=== PATIENT | male | born 1950 | race Caucasian/White ===

== ENCOUNTER 2019-10-17 20:35 | Inpatient (IN) ==
[2019-10-18] MEDS ORDERED: Naloxone 0.4 MG/ML INJ IVP PRN (00:02)
[2019-10-18] MEDS ORDERED: Nicotine 21 MG PATCH.TD24 TD PRN (00:51)
[2019-10-18 02:27] LABS: Red Cell Distribution Width 15.6 % (11.5-14.5)
[2019-10-18 02:29] LABS: Mean Corpuscular HGB Conc 30.8 g/dL (31.6-35.5); Mean Corpuscular Volume 97.3 fL (83.0-100.0); Platelet Count 159 K/mcL (140-400); White Blood Count 6.9 K/mcL (4.3-11.1)
[2019-10-18 02:34] LABS: Hematocrit 14.6 % (37.5-50.1); Hemoglobin 4.5 g/dL (12.9-16.9)
[2019-10-18] MEDS ORDERED: 0.9 % Sodium Chloride 250 ML IVC SCH ×2 (02:45→17:00)
[2019-10-18] MEDS: Azithromycin 500 MG in D5% in Water 250 ML IVPB SCH (04:29)
[2019-10-18] MEDS: Octreotide 400 MCG in 0.9 % Sodium Chloride 100 ML IVC SCH ×3 (05:27→23:02)
[2019-10-18] MEDS: Pantoprazole 40 MG VIAL IVP SCH ×2 (06:03→18:46)
[2019-10-18] MEDS ORDERED: Ondansetron 4 MG/2 ML VIAL IVP PRN (09:27)
[2019-10-18] MEDS: cefTRIAXone 1,000 MG in Water for inj. (sterile) 10 ML IVP SCH (10:28)
[2019-10-18] MEDS: Gabapentin 400 MG CAPSULE PO SCH ×2 (10:29→19:44)
[2019-10-18] MEDS: *HR* OxyCODONE Immed Rel 15 MG TABLET PO SCH ×2 (10:30→19:44)
[2019-10-18 11:06] LABS: Hematocrit 18.3 % (37.5-50.1)
[2019-10-18 11:16] LABS: Hemoglobin 5.5 g/dL (12.9-16.9)
[2019-10-18 12:54] LABS: % Iron Saturation 23 % (20-55); Iron 78 mcg/dL (65-175); Transferrin 239 mg/dL (203-362)
[2019-10-18 13:12] LABS: Ferritin 32 ng/mL (20-250)
[2019-10-18 19:27] LABS: Hepatitis B Surface Antigen Nonreactive (Nonreactive)
[2019-10-18] MEDS: QUEtiapine Fumarate 100 MG TABLET PO SCH (19:44)
[2019-10-18 19:56] LABS: Hepatitis B Core IgM Nonreactive (Nonreactive)
[2019-10-18 19:58] LABS: Hepatitis A Antibody IgM Nonreactive (Nonreactive)
[2019-10-19 01:39] LABS: Hepatitis C Virus Antibody Reactive (Nonreactive)
[2019-10-19] MEDS ORDERED: Azithromycin 500 MG in 0.9 % Sodium Chloride 250 ML IVPB SCH (04:15)
[2019-10-19] MEDS: Pantoprazole 40 MG VIAL IVP SCH ×2 (04:23→17:21)
[2019-10-19] MEDS: Octreotide 400 MCG in 0.9 % Sodium Chloride 100 ML IVC SCH (05:59)
[2019-10-19 08:17] LABS: Basophils % 0.7 %; Eosinophils # 0.2 K/mcL (0.0-0.6); Eosinophils % 4.4 %; Hematocrit 23.3 % (37.5-50.1); Hemoglobin 7.4 g/dL (12.9-16.9); Immature Granulocytes % 0.4 % (0-4); Lymphocytes # 1.1 K/mcL (0.6-4.6); Mean Corpuscular HGB Conc 31.8 g/dL (31.6-35.5); Mean Corpuscular Hemoglobin 29.1 pg (28.0-33.3); Mean Corpuscular Volume 91.7 fL (83.0-100.0); Mean Platelet Volume 9.6 fL (9.4-12.4); Monocytes # 0.6 K/mcL (0.0-1.3); Neutrophils # 2.7 K/mcL (1.6-8.9); Platelet Count 134 K/mcL (140-400); Red Blood Count 2.54 M/mcL (4.19-5.50); Red Cell Distribution Width 18.4 % (11.5-14.5); Segmented Neutrophils % 58.5 %; White Blood Count 4.6 K/mcL (4.3-11.1)
[2019-10-19] MEDS ORDERED: lisinopriL 20 MG TABLET PO SCH (09:00)
[2019-10-19 09:26] LABS: ABG Base Excess 3 mEq/L (-2 to 3); ABG HCO3 29 mEq/L (21-27); ABG Oxygen Saturation 100 % (95-98); ABG PCO2 51 mmHg (35-45); ABG PH 7.37 pH Units (7.32-7.45); ABG PO2 210 mmHg (85-104); ABG TCO2 31 mEq/L (20-26)
[2019-10-19 09:47] LABS: Basophils % 0.7 %; Eosinophils # 0.2 K/mcL (0.0-0.6); Eosinophils % 4.9 %; Hemoglobin 7.1 g/dL (12.9-16.9); Immature Granulocytes % 0.5 % (0-4); Lymphocytes % 23.8 %; Mean Corpuscular HGB Conc 30.9 g/dL (31.6-35.5); Mean Corpuscular Hemoglobin 28.5 pg (28.0-33.3); Mean Corpuscular Volume 92.4 fL (83.0-100.0); Mean Platelet Volume 9.7 fL (9.4-12.4); Monocytes # 0.5 K/mcL (0.0-1.3); Monocytes % 11.9 %; Neutrophils # 2.5 K/mcL (1.6-8.9); Platelet Count 135 K/mcL (140-400); Red Blood Count 2.49 M/mcL (4.19-5.50); Red Cell Distribution Width 18.1 % (11.5-14.5); Segmented Neutrophils % 58.2 %; White Blood Count 4.3 K/mcL (4.3-11.1)
[2019-10-19 10:02] LABS: Alanine Aminotransferase 11 Units/L (7-52); Albumin 2.1 g/dL (3.5-5.7); Albumin/Globulin Ratio 0.7 (1.1-2.2); Alkaline Phosphatase 54 Units/L (34-104); Aspartate Amino Transferase 26 Units/L (13-39); BUN/Creatinine Ratio 10 (6-26); Bilirubin,Total 0.6 mg/dL (0.3-1.0); Blood Urea Nitrogen 12 mg/dL (8-23); Calcium 7.2 mg/dL (8.6-10.3); Carbon Dioxide 26 mEq/L (23-29); Chloride 106 mEq/L (98-107); Glucose 106 mg/dL (70-105); Osmolality,Calculated 282 (280-300); Potassium 3.6 mEq/L (3.5-5.1); Sodium 136 mEq/L (136-145); Total Protein 5.1 g/dL (6.4-8.9); eGFR For African Americans > 60 (> 60); eGFR For Non-African Americans > 60 (> 60)
[2019-10-19] MEDS: Gabapentin 400 MG CAPSULE PO SCH ×2 (11:07→19:30)
[2019-10-19] MEDS: cefTRIAXone 1,000 MG in Water for inj. (sterile) 10 ML IVP SCH (11:07)
[2019-10-19] MEDS: *HR* OxyCODONE Immed Rel 15 MG TABLET PO SCH ×2 (11:07→19:28)
[2019-10-19] MEDS ORDERED: Lactulose Oral Soln 20 GM/30 ML UDC PO ONE (11:48)
[2019-10-19] MEDS: Doxycycline 100 MG in 0.9 % Sodium Chloride Mini Bag 100 ML IVPB SCH ×2 (12:45→23:52)
[2019-10-19] MEDS: Azithromycin 500 MG in D5% in Water 250 ML IVPB SCH (14:05)
[2019-10-19 14:37] LABS: AFP Tumor Marker Non-Pregnant 2 ng/mL (0-9)
[2019-10-19 15:11] LABS: Hematocrit 24.8 % (37.5-50.1); Hemoglobin 7.8 g/dL (12.9-16.9)
[2019-10-19] MEDS: QUEtiapine Fumarate 100 MG TABLET PO SCH (19:28)
[2019-10-20] MEDS ORDERED: Albuterol 2.5 MG/3 ML NEBULIZER IH PRN (00:15)
[2019-10-20] MEDS: Pantoprazole 40 MG VIAL IVP SCH ×2 (04:24→16:34)
[2019-10-20 05:14] LABS: Basophils % 0.4 %; Eosinophils # 0.2 K/mcL (0.0-0.6); Hematocrit 22.5 % (37.5-50.1); Hemoglobin 6.9 g/dL (12.9-16.9); Immature Granulocytes % 0.4 % (0-4); Lymphocytes # 1.1 K/mcL (0.6-4.6); Lymphocytes % 22.8 %; Mean Corpuscular HGB Conc 30.7 g/dL (31.6-35.5); Mean Corpuscular Hemoglobin 28.8 pg (28.0-33.3); Mean Corpuscular Volume 93.8 fL (83.0-100.0); Mean Platelet Volume 10.2 fL (9.4-12.4); Monocytes # 0.5 K/mcL (0.0-1.3); Monocytes % 10.3 %; Platelet Count 132 K/mcL (140-400); Red Cell Distribution Width 17.6 % (11.5-14.5); Segmented Neutrophils % 62.1 %; White Blood Count 4.8 K/mcL (4.3-11.1)
[2019-10-20 05:31] LABS: Calcium 7.4 mg/dL (8.6-10.3); Potassium 3.8 mEq/L (3.5-5.1)
[2019-10-20] MEDS: Gabapentin 400 MG CAPSULE PO SCH ×2 (08:21→20:40)
[2019-10-20] MEDS: cefTRIAXone 1,000 MG in Water for inj. (sterile) 10 ML IVP SCH (08:21)
[2019-10-20] MEDS: *HR* OxyCODONE Immed Rel 15 MG TABLET PO SCH ×2 (08:21→20:40)
[2019-10-20 10:23] LABS: Albumin 2.2 g/dL (3.5-5.7)
[2019-10-20 10:48] LABS: Serine Protease-3 Antibody 141 AU/mL (0-19); Tissue Transglutaminase IgA 2 U/mL (0-3)
[2019-10-20 11:06] LABS: ANA IgG by ELISA NONE DETECTED (None Detected); F-Actin (sm muscle) Ab IgG 18 Units (0-19); Immunoglobulin A (CELIAC) 506 mg/dL (68-408)
[2019-10-20] MEDS: Lactulose Oral Soln 20 GM/30 ML UDC PO SCH ×2 (11:58→20:40)
[2019-10-20] MEDS: predniSONE 20 MG TABLET PO SCH (11:58)
[2019-10-20] MEDS: Doxycycline 100 MG in 0.9 % Sodium Chloride Mini Bag 100 ML IVPB SCH (12:00)
[2019-10-20] MEDS: Ipratropium/Albuterol Neb 3 ML IH SCH ×3 (14:33→21:44)
[2019-10-20] MEDS ORDERED: Lidocaine 2% Syringe 100 MG/5 ML IV ONE (18:15)
[2019-10-20] MEDS ORDERED: *HR* Propofol 200 MG/20 ML VIAL IVP ONE (18:15)
[2019-10-20] MEDS: QUEtiapine Fumarate 100 MG TABLET PO SCH (20:40)
[2019-10-21 02:42] LABS: Basophils % 0.2 %; Hematocrit 23.3 % (37.5-50.1); Hemoglobin 7.4 g/dL (12.9-16.9); Immature Granulocytes % 0.5 % (0-4); Lymphocytes # 0.4 K/mcL (0.6-4.6); Lymphocytes % 8.8 %; Mean Corpuscular HGB Conc 31.8 g/dL (31.6-35.5); Mean Corpuscular Hemoglobin 29.5 pg (28.0-33.3); Mean Corpuscular Volume 92.8 fL (83.0-100.0); Mean Platelet Volume 10.4 fL (9.4-12.4); Monocytes # 0.1 K/mcL (0.0-1.3); Monocytes % 2.4 %; Neutrophils # 3.7 K/mcL (1.6-8.9); Platelet Count 120 K/mcL (140-400); Red Blood Count 2.51 M/mcL (4.19-5.50); Red Cell Distribution Width 17.5 % (11.5-14.5); Segmented Neutrophils % 88.1 %; White Blood Count 4.2 K/mcL (4.3-11.1)
[2019-10-21 03:02] LABS: Albumin 2.3 g/dL (3.5-5.7); Albumin/Globulin Ratio 0.7 (1.1-2.2); Bilirubin,Direct 0.2 mg/dL (0.0-0.2); Bilirubin,Indirect 0.3 mg/dL (0.0-1.0); Bilirubin,Total 0.5 mg/dL (0.3-1.0); Calcium 7.5 mg/dL (8.6-10.3); Globulin 3.2 g/dL (2.4-3.5); Potassium 4.5 mEq/L (3.5-5.1); Total Protein 5.5 g/dL (6.4-8.9)
[2019-10-21] MEDS: Ipratropium/Albuterol Neb 3 ML IH SCH ×5 (03:51→22:31)
[2019-10-21] MEDS: Pantoprazole 40 MG VIAL IVP SCH ×2 (05:28→17:34)
[2019-10-21] MEDS: Lactulose Oral Soln 20 GM/30 ML UDC PO SCH ×2 (08:24→20:24)
[2019-10-21] MEDS: *HR* OxyCODONE Immed Rel 15 MG TABLET PO SCH ×2 (08:24→20:24)
[2019-10-21] MEDS: predniSONE 20 MG TABLET PO SCH (08:25)
[2019-10-21] MEDS: Gabapentin 400 MG CAPSULE PO SCH ×2 (08:25→20:23)
[2019-10-21] MEDS: cefTRIAXone 1,000 MG in Water for inj. (sterile) 10 ML IVP SCH (08:25)
[2019-10-21] MEDS: Doxycycline 100 MG in 0.9 % Sodium Chloride Mini Bag 100 ML IVPB SCH ×3 (12:52→23:50)
[2019-10-21] MEDS: QUEtiapine Fumarate 100 MG TABLET PO SCH (20:24)
[2019-10-22] MEDS: Pantoprazole 40 MG VIAL IVP SCH ×2 (05:19→17:23)
[2019-10-22] MEDS: Lactulose Oral Soln 20 GM/30 ML UDC PO SCH (07:56)
[2019-10-22] MEDS: predniSONE 20 MG TABLET PO SCH (07:56)
[2019-10-22] MEDS: Gabapentin 400 MG CAPSULE PO SCH (07:56)
[2019-10-22] MEDS: *HR* OxyCODONE Immed Rel 15 MG TABLET PO SCH (07:57)
[2019-10-22] MEDS: cefTRIAXone 1,000 MG in Water for inj. (sterile) 10 ML IVP SCH (07:57)
[2019-10-22 08:21] LABS: Eosinophils % 0.2 %; Hematocrit 24.5 % (37.5-50.1); Hemoglobin 7.6 g/dL (12.9-16.9); Immature Granulocytes % 0.6 % (0-4); Lymphocytes # 0.8 K/mcL (0.6-4.6); Lymphocytes % 15.4 %; Mean Corpuscular Hemoglobin 29.8 pg (28.0-33.3); Mean Corpuscular Volume 96.1 fL (83.0-100.0); Mean Platelet Volume 10.5 fL (9.4-12.4); Monocytes # 0.4 K/mcL (0.0-1.3); Monocytes % 8.1 %; Platelet Count 131 K/mcL (140-400); Red Blood Count 2.55 M/mcL (4.19-5.50); Red Cell Distribution Width 18.1 % (11.5-14.5); Segmented Neutrophils % 75.7 %; White Blood Count 5.2 K/mcL (4.3-11.1)
[2019-10-22 08:22] LABS: INR 1.2; Prothrombin Time 14.1 Seconds (9.4-12.1)
[2019-10-22 08:26] LABS: BUN/Creatinine Ratio 17 (6-26); Blood Urea Nitrogen 19 mg/dL (8-23); Calcium 7.9 mg/dL (8.6-10.3); Carbon Dioxide 23 mEq/L (23-29); Chloride 112 mEq/L (98-107); Glucose 90 mg/dL (70-105); Osmolality,Calculated 286 (280-300); Potassium 4.5 mEq/L (3.5-5.1); Sodium 137 mEq/L (136-145); eGFR For African Americans > 60 (> 60); eGFR For Non-African Americans > 60 (> 60)
[2019-10-22] MEDS: Doxycycline 100 MG in 0.9 % Sodium Chloride Mini Bag 100 ML IVPB SCH (11:37)
[2019-10-22 12:01] LABS: RBC,Peritoneal Fluid < 0.002 M/mcL
[2019-10-22 12:19] LABS: Amylase,Peritoneal Fluid < 10 Units/L (No Ref Range); Glucose,Peritoneal Fluid 103 mg/dL (No Ref Range); LDH,Peritoneal Fluid 50 Units/L (No Ref Range); Total Protein,Peritoneal Fluid < 3.0 g/dL
[2019-10-22] MEDS ORDERED: Furosemide 20 MG TABLET PO PRN (12:27)
[2019-10-22 13:47] LABS: Appearance of Peritoneal Fl HAZY (Clear)
[2019-10-22 15:03] VITALS: BP 102/67
[2019-10-22 15:48] LABS: A1A SZ Specimen WHOLE BLOOD; Alpha-1-Antitrypsin S Allele NEGATIVE; Alpha-1-Antitrypsin Z Allele NEGATIVE
[2019-10-22 17:04] LABS: Alpha-1-Antitrypsin 234 mg/dL (90-200)
== END 2019-10-22 18:16 | disposition left against medical advice (07) | DRG 377 ==
LOC: 2NENU → SUATTDRO 10-18 16:37 → 3NENU 10-18 20:13 → 3ANU 10-21 10:11
PROVIDERS: ADMIT Internal Medicine; ATTEND Internal Medicine
PROC: ENDOEBX (2019-10-19 12:40)

== ENCOUNTER 2020-11-04 01:24 | Observation (INO) ==
[2020-11-04] MEDS ORDERED: Acetaminophen 325 MG TABLET PO PRN (04:25)
[2020-11-04] MEDS ORDERED: Naloxone 0.4 MG/ML INJ IVP PRN (04:25)
[2020-11-04] MEDS ORDERED: *HR* HYDROcodone/Acet 5/325 mg TABLET PO PRN (04:25)
[2020-11-04] MEDS ORDERED: Ondansetron 4 MG/2 ML VIAL IVP PRN (04:25)
[2020-11-04 05:33] LABS: Calcium 8.3 mg/dL (8.6-10.3); Potassium 5.8 mEq/L (3.5-5.1)
[2020-11-04] MEDS ORDERED: Albuterol 2.5 MG/3 ML NEBULIZER IH ONE ×2 (05:43→22:29)
[2020-11-04] MEDS ORDERED: Calcium Gluconate 1gm/50mL 1 GM/50 ML BAG IVPB ONE ×2 (05:52→22:34)
[2020-11-04] MEDS ORDERED: Insulin Human Regular 10 UNIT in 0.9 % Sodium Chloride 10 ML IV ONE ×2 (05:56→22:40)
[2020-11-04] MEDS ORDERED: D5% in Water 1,000 ML IVC SCH (06:00)
[2020-11-04] MEDS: *HR* Heparin 5,000 UNIT/ML VIAL SQ SCH ×3 (06:02→20:40)
[2020-11-04 06:07] LABS: Bilirubin,Urine Negative (Negative); Blood,Urine Negative (Negative); Clarity,Urine Clear (Clear); Color,Urine Colorless (Yellow); Glucose,Urine (UA) 500 mg/dL (Normal); Ketones,Urine Negative (Negative); Leukocyte Esterase,Urine Negative (Negative); Nitrite,Urine Negative (Negative); PH,Urine 6.5 pH Units (5.0-8.0); Protein,Urine Negative (Neg-Trace); RBC,Urine 0-3 per hpf (0-3); Specific Gravity,Urine 1.006 (1.010-1.025); Squamous Epithelial Cell,Urine Few per hpf (None-Few); Urobilinogen,Urine Normal (Normal); WBC,Urine 0-3 per hpf (0-3)
[2020-11-04 06:08] LABS: Basophils # 0.1 K/mcL (0.0-0.2); Basophils % 0.6 %; Eosinophils # 0.1 K/mcL (0.0-0.6); Eosinophils % 1.3 %; Hematocrit 32.4 % (37.5-50.1); Hemoglobin 10.4 g/dL (12.9-16.9); Immature Granulocytes % 1.1 % (0-4); Lymphocytes % 12.2 %; Mean Corpuscular HGB Conc 32.1 g/dL (31.6-35.5); Mean Corpuscular Hemoglobin 31.4 pg (28.0-33.3); Mean Corpuscular Volume 97.9 fL (83.0-100.0); Mean Platelet Volume 10.2 fL (9.4-12.4); Monocytes # 0.7 K/mcL (0.0-1.3); Monocytes % 8.6 %; Neutrophils # 6.1 K/mcL (1.6-8.9); Platelet Count 137 K/mcL (140-400); Red Blood Count 3.31 M/mcL (4.19-5.50); Red Cell Distribution Width 12.8 % (11.5-14.5); Segmented Neutrophils % 76.2 %
[2020-11-04 06:10] LABS: Protein/Creatinine Ratio,Urine 1.12 mg/mg (0.00-0.20)
[2020-11-04 06:30] LABS: Amphetamine Screen,Urine Negative ng/mL (Cutoff=1000); Barbiturate Screen,Urine Negative ng/mL (Cutoff=200)
[2020-11-04 06:31] LABS: Benzodiazepines Screen,Urine Negative ng/mL (Cutoff=300); Cannabinoid Screen,Urine Negative ng/mL (Cutoff = 50); Cocaine Screen,Urine Negative ng/mL (Cutoff= 300); Opiate Screen,Urine Negative ng/mL (Cutoff=300); Phencyclidine Screen,Urine Negative ng/mL (Cutoff=25)
[2020-11-04] MEDS ORDERED: *HR* Dextrose 50 % in Water (Vial) 50 ML VIAL IVP ONE (06:45)
[2020-11-04] MEDS: *HR* OxyCODONE Immed Rel 5 MG TABLET PO PRN ×2 (07:59→20:45)
[2020-11-04 10:19] LABS: Estimated Average Glucose 229 mg/dl; Hemoglobin A1C 9.6 %
[2020-11-04 10:25] LABS: VBG HCO3 19 mEq/L (21-27); VBG PCO2 48 mmHg (41-51); VBG PH 7.22 pH Units (7.32-7.42); VBG PO2 139 mmHg (25-50)
[2020-11-04] MEDS ORDERED: SODIUM ZIRCONIUM CYCLOSILICATE 5 GM POWD.PACK PO ONE (11:01)
[2020-11-04 11:02] LABS: Albumin 3.7 g/dL (3.5-5.7); Albumin/Globulin Ratio 1.1 (1.1-2.2); Bilirubin,Direct 0.2 mg/dL (0.0-0.2); Bilirubin,Indirect 0.4 mg/dL (0.0-1.0); Bilirubin,Total 0.6 mg/dL (0.3-1.0); Calcium 8.9 mg/dL (8.6-10.3); Globulin 3.3 g/dL (2.4-3.5); Magnesium 1.4 mg/dL (1.6-2.6); Phosphorous 3.8 mg/dL (2.7-4.5); Potassium 4.6 mEq/L (3.5-5.1)
[2020-11-04] MEDS ORDERED: Ipratropium/Albuterol Neb 3 ML IH PRN (11:15)
[2020-11-04] MEDS ORDERED: Nicotine 2 MG GUM BC PRN (11:57)
[2020-11-04 11:58] LABS: Uric Acid 5.7 mg/dL (2.3-7.6)
[2020-11-04] MEDS: predniSONE 20 MG TABLET PO SCH (12:21)
[2020-11-04] MEDS: Nicotine 21 MG PATCH.TD24 TD SCH (12:21)
[2020-11-04] MEDS: Ipratropium/Albuterol Neb 3 ML IH SCH ×3 (12:36→21:12)
[2020-11-04 13:07] LABS: VBG HCO3 21 mEq/L (21-27); VBG PCO2 52 mmHg (41-51); VBG PH 7.22 pH Units (7.32-7.42); VBG PO2 85 mmHg (25-50)
[2020-11-04 13:44] LABS: Hepatitis B Surface Antigen Nonreactive (Nonreactive)
[2020-11-04 14:12] LABS: Hepatitis C Virus Antibody Nonreactive (Nonreactive)
[2020-11-04 14:13] LABS: Hepatitis B Core IgM Nonreactive (Nonreactive)
[2020-11-04 14:14] LABS: Hepatitis A Antibody IgM Nonreactive (Nonreactive)
[2020-11-04] MEDS ORDERED: Nitroglycerin 0.4 MG TAB.SUBL SL PRN (15:44)
[2020-11-04] MEDS: Insulin LISPRO 300 UNITS/3 ML VIAL SUBQ SCH (16:33)
[2020-11-04] MEDS: carvediloL 6.25 MG TABLET PO SCH (20:40)
[2020-11-04] MEDS: Sucralfate 1 GM TABLET PO SCH (20:40)
[2020-11-04] MEDS: tiZANidine 4 MG TABLET PO SCH (20:40)
[2020-11-04] MEDS ORDERED: QUEtiapine Fumarate 100 MG TABLET PO SCH (21:00)
[2020-11-04] MEDS ORDERED: Insulin DETEMIR 100 UNIT/ML X5UNITS SUBQ SCH (21:00)
[2020-11-04] MEDS ORDERED: carvediloL 6.25 MG TABLET PO SCH (21:00)
[2020-11-04] MEDS ORDERED: Insulin LISPRO 300 UNITS/3 ML VIAL SUBQ SCH (21:30)
[2020-11-04] MEDS ORDERED: Budesonide/Formoterol 160/4.5 1 PUFF INH IH SCH (22:00)
[2020-11-04 22:27] LABS: Potassium 6.8 mEq/L (3.5-5.1)
[2020-11-05 02:45] LABS: Basophils % 0.2 %; Eosinophils % 0.1 %; Hematocrit 31.5 % (37.5-50.1); Hemoglobin 10.6 g/dL (12.9-16.9); Immature Granulocytes % 0.8 % (0-4); Lymphocytes # 0.8 K/mcL (0.6-4.6); Lymphocytes % 8.9 %; Mean Corpuscular HGB Conc 33.7 g/dL (31.6-35.5); Mean Corpuscular Hemoglobin 32.1 pg (28.0-33.3); Mean Corpuscular Volume 95.5 fL (83.0-100.0); Mean Platelet Volume 10.1 fL (9.4-12.4); Monocytes # 0.5 K/mcL (0.0-1.3); Monocytes % 6.1 %; Neutrophils # 7.3 K/mcL (1.6-8.9); Platelet Count 152 K/mcL (140-400); Red Cell Distribution Width 12.7 % (11.5-14.5); Segmented Neutrophils % 83.9 %; White Blood Count 8.7 K/mcL (4.3-11.1)
[2020-11-05 02:53] LABS: INR 1.1; Prothrombin Time 12.5 Seconds (9.4-12.1)
[2020-11-05 03:03] LABS: Calcium 9.5 mg/dL (8.6-10.3); Potassium 5.4 mEq/L (3.5-5.1)
[2020-11-05 03:07] LABS: Albumin 3.8 g/dL (3.5-5.7); Albumin/Globulin Ratio 1.1 (1.1-2.2); Bilirubin,Total 0.4 mg/dL (0.3-1.0); Calcium 9.7 mg/dL (8.6-10.3); Globulin 3.4 g/dL (2.4-3.5); Magnesium 2.1 mg/dL (1.6-2.6); Phosphorous 2.9 mg/dL (2.7-4.5); Potassium 5.5 mEq/L (3.5-5.1); Total Protein 7.2 g/dL (6.4-8.9)
[2020-11-05 03:17] LABS: Thyroid Stimulating Hormone 0.364 mcIU/mL (0.340-5.600)
[2020-11-05] MEDS: Ipratropium/Albuterol Neb 3 ML IH SCH (03:18)
[2020-11-05 03:27] LABS: Folate 8.8 ng/mL (3.0-16.0)
[2020-11-05] MEDS: Nicotine 21 MG PATCH.TD24 TD SCH (05:29)
[2020-11-05] MEDS: *HR* Heparin 5,000 UNIT/ML VIAL SQ SCH (05:29)
[2020-11-05 07:29] VITALS: BP 164/52
[2020-11-05] MEDS ORDERED: *HR* Dextrose 50 % in Water (Vial) 50 ML VIAL IVP ONE (07:41)
[2020-11-05] MEDS ORDERED: Insulin Human Regular 10 UNIT in 0.9 % Sodium Chloride 10 ML IV ONE (08:00)
[2020-11-05] MEDS ORDERED: SODIUM ZIRCONIUM CYCLOSILICATE 5 GM POWD.PACK PO ONE (08:02)
[2020-11-05] MEDS ORDERED: Insulin Human Regular 5 UNIT in 0.9 % Sodium Chloride 10 ML IV ONE (08:14)
[2020-11-05] MEDS: Insulin LISPRO 300 UNITS/3 ML VIAL SUBQ SCH ×2 (08:23→08:40)
[2020-11-05] MEDS: carvediloL 6.25 MG TABLET PO SCH (08:38)
[2020-11-05] MEDS: predniSONE 20 MG TABLET PO SCH (08:39)
[2020-11-05] MEDS: Sucralfate 1 GM TABLET PO SCH (08:40)
[2020-11-05] MEDS: tiZANidine 4 MG TABLET PO SCH (08:40)
[2020-11-05] MEDS ORDERED: Insulin DETEMIR 100 UNIT/ML X5UNITS SUBQ SCH (09:00)
== END 2020-11-05 09:32 | disposition left against medical advice (07) ==
LOC: 2ANU → SUATTDRO 03:12
PROVIDERS: ADMIT Internal Medicine; ATTEND Internal Medicine

== ENCOUNTER 2021-08-08 01:59 | Inpatient (IN) ==
[2021-08-08] MEDS ORDERED: Naloxone 0.4 MG/ML INJ IVP PRN (04:33)
[2021-08-08] MEDS ORDERED: Ondansetron 4 MG/2 ML VIAL IVP PRN (04:33)
[2021-08-08] MEDS ORDERED: Acetaminophen 325 MG TABLET PO PRN (04:33)
[2021-08-08] MEDS ORDERED: *HR* Dextrose 50 % in Water (Syg) 50 ML SYRINGE IVP PRN (04:35)
[2021-08-08] MEDS ORDERED: D5% in Water 1,000 ML IVC PRN (04:35)
[2021-08-08] MEDS ORDERED: Dextrose Gel 15 GM/37.5 ML TUBE PO PRN ×2 (04:35)
[2021-08-08] MEDS ORDERED: 0.9 % Sodium Chloride 1,000 ML IVC ONE (04:37)
[2021-08-08 04:59] LABS: ABG Base Excess -10 mEq/L (-2 to 3); ABG HCO3 16 mEq/L (21-27); ABG Oxygen Saturation 54 % (95-98); ABG PCO2 32 mmHg (35-45); ABG PO2 31 mmHg (85-104); ABG TCO2 17 mEq/L (20-26)
[2021-08-08 05:37] LABS: Hematocrit 24.2 % (37.5-50.1); Hemoglobin 7.9 g/dL (12.9-16.9); Red Blood Count 2.63 M/mcL (4.19-5.50); White Blood Count 9.4 K/mcL (4.3-11.1)
[2021-08-08 05:39] LABS: Basophils % 0.1 %; Eosinophils # 0.1 K/mcL (0.0-0.6); Eosinophils % 0.6 %; Immature Granulocytes % 1.3 % (0-4); Lymphocytes # 0.7 K/mcL (0.6-4.6); Lymphocytes % 7.6 %; Mean Corpuscular HGB Conc 32.2 g/dL (31.6-35.5); Mean Corpuscular Hemoglobin 29.7 pg (28.0-33.3); Mean Platelet Volume 10.2 fL (9.4-12.4); Monocytes # 0.8 K/mcL (0.0-1.3); Monocytes % 8.6 %; Neutrophils # 7.7 K/mcL (1.6-8.9); Platelet Count 129 K/mcL (140-400); Red Cell Distribution Width 14.3 % (11.5-14.5); Segmented Neutrophils % 81.8 %
[2021-08-08] MEDS ORDERED: Acetaminophen IV 500 MG/50 ML BAG IVPB ONE (05:45)
[2021-08-08 05:48] LABS: INR 1.4; Prothrombin Time 15.4 Seconds (9.4-12.1)
[2021-08-08] MEDS ORDERED: Insulin LISPRO 300 UNITS/3 ML VIAL SUBQ SCH (06:00)
[2021-08-08 06:05] LABS: Albumin 2.7 g/dL (3.5-5.7); Albumin/Globulin Ratio 0.9 (1.1-2.2); Bilirubin,Total 0.6 mg/dL (0.3-1.0); Calcium 7.7 mg/dL (8.6-10.3); Globulin 3.1 g/dL (2.4-3.5); Magnesium 1.5 mg/dL (1.6-2.6); Phosphorous 2.3 mg/dL (2.7-4.5); Potassium 3.9 mEq/L (3.5-5.1); Total Protein 5.8 g/dL (6.4-8.9); Troponin I 0.03 ng/mL (< 0.04)
[2021-08-08] MEDS: Ipratropium 1 PUFF INHALER IH SCH ×5 (07:12→20:46)
[2021-08-08] MEDS: Benzonatate 100 MG CAPSULE PO PRN ×2 (08:02→14:28)
[2021-08-08] MEDS: Insulin LISPRO 300 UNITS/3 ML VIAL SUBQ SCH ×4 (12:38→20:48)
[2021-08-08] MEDS ORDERED: Sennosides 8.6 MG TABLET PO PRN (13:37)
[2021-08-08] MEDS ORDERED: Nitroglycerin 0.4 MG TAB.SUBL SL PRN (13:37)
[2021-08-08] MEDS ORDERED: Ipratropium/Albuterol Neb 3 ML IH PRN (13:37)
[2021-08-08] MEDS: Gabapentin 300 MG CAPSULE PO SCH ×2 (14:28→20:38)
[2021-08-08 15:05] LABS: Albumin 2.5 g/dL (3.5-5.7); Albumin/Globulin Ratio 0.8 (1.1-2.2); Bilirubin,Total 0.6 mg/dL (0.3-1.0); Calcium 7.4 mg/dL (8.6-10.3); Globulin 3.3 g/dL (2.4-3.5); Potassium 4.7 mEq/L (3.5-5.1); Total Protein 5.8 g/dL (6.4-8.9)
[2021-08-08] MEDS: Melatonin 3 MG TABLET PO PRN (20:34)
[2021-08-08] MEDS: Sucralfate 1 GM TABLET PO SCH (20:35)
[2021-08-08] MEDS: *HR* Methadone 5 MG TABLET PO SCH (20:35)
[2021-08-08] MEDS: QUEtiapine Fumarate 100 MG TABLET PO SCH (20:37)
[2021-08-09] MEDS: Budesonide/Formoterol 160/4.5 1 PUFF INH IH SCH ×3 (00:03→19:45)
[2021-08-09] MEDS: carvediloL 6.25 MG TABLET PO SCH ×3 (00:32→20:43)
[2021-08-09] MEDS: Benzonatate 100 MG CAPSULE PO PRN (00:34)
[2021-08-09 02:22] LABS: Hematocrit 19.9 % (37.5-50.1); Hemoglobin 6.4 g/dL (12.9-16.9); Immature Granulocytes % 1.2 % (0-4); Lymphocytes # 0.3 K/mcL (0.6-4.6); Lymphocytes % 7.8 %; Mean Corpuscular HGB Conc 32.2 g/dL (31.6-35.5); Mean Corpuscular Hemoglobin 29.8 pg (28.0-33.3); Mean Corpuscular Volume 92.6 fL (83.0-100.0); Monocytes # 0.2 K/mcL (0.0-1.3); Monocytes % 4.4 %; Neutrophils # 3.6 K/mcL (1.6-8.9); Platelet Count 114 K/mcL (140-400); Red Blood Count 2.15 M/mcL (4.19-5.50); Red Cell Distribution Width 14.5 % (11.5-14.5); Segmented Neutrophils % 86.6 %; White Blood Count 4.1 K/mcL (4.3-11.1)
[2021-08-09 02:45] LABS: BUN/Creatinine Ratio 32 (6-26); Blood Urea Nitrogen 41 mg/dL (8-23); Calcium 7.7 mg/dL (8.6-10.3); Carbon Dioxide 17 mEq/L (23-29); Chloride 106 mEq/L (98-107); Creatine Kinase 1547 Units/L (30-223); Glucose 538 mg/dL (70-105); Magnesium 2.1 mg/dL (1.6-2.6); Osmolality,Calculated 305 (280-300); Potassium 4.7 mEq/L (3.5-5.1); Sodium 130 mEq/L (136-145); eGFR For African Americans > 60 (> 60); eGFR For Non-African Americans 54 (> 60)
[2021-08-09] MEDS: Ipratropium 1 PUFF INHALER IH SCH ×6 (03:57→23:21)
[2021-08-09 05:08] LABS: Estimated Average Glucose 344 mg/dl; Hemoglobin A1C 13.6 %
[2021-08-09] MEDS: Insulin LISPRO 300 UNITS/3 ML VIAL SUBQ SCH ×6 (05:54→20:47)
[2021-08-09] MEDS ORDERED: 0.9 % Sodium Chloride 250 ML IVC SCH (06:15)
[2021-08-09 07:04] LABS: Hematocrit 23.6 % (37.5-50.1); Hemoglobin 7.4 g/dL (12.9-16.9); Mean Corpuscular HGB Conc 31.4 g/dL (31.6-35.5); Mean Corpuscular Hemoglobin 29.6 pg (28.0-33.3); Mean Corpuscular Volume 94.4 fL (83.0-100.0); Mean Platelet Volume 11.1 fL (9.4-12.4); Platelet Count 138 K/mcL (140-400); Red Cell Distribution Width 14.6 % (11.5-14.5); White Blood Count 4.7 K/mcL (4.3-11.1)
[2021-08-09] MEDS: *HR* Methadone 5 MG TABLET PO SCH ×2 (08:21→20:26)
[2021-08-09] MEDS: Isosorbide MONOnitrate (24 HR) 30 MG TAB.ER.24H PO SCH (08:22)
[2021-08-09] MEDS: Sucralfate 1 GM TABLET PO SCH ×2 (08:22→20:26)
[2021-08-09] MEDS: Gabapentin 300 MG CAPSULE PO SCH ×3 (08:22→20:25)
[2021-08-09] MEDS ORDERED: Insulin DETEMIR 100 UNIT/ML X5UNITS SUBQ SCH (09:00)
[2021-08-09] MEDS ORDERED: NON-FORMULARY MEDICATION 1 EACH EACH (Tiotropium Bromide [Spiriva Handihaler] 18 MCG Cap.W IH SCH (09:00)
[2021-08-09 11:36] LABS: Bilirubin,Urine Negative (Negative); Blood,Urine Moderate (Negative); Clarity,Urine Clear (Clear); Color,Urine Light-Yellow (Yellow); Glucose,Urine (UA) 150 mg/dL (Normal); Ketones,Urine Negative (Negative); Leukocyte Esterase,Urine Negative (Negative); Nitrite,Urine Negative (Negative); PH,Urine 5.5 pH Units (5.0-8.0); Protein,Urine Trace mg/dL (Neg-Trace); Specific Gravity,Urine 1.009 (1.010-1.025); Urobilinogen,Urine Normal (Normal)
[2021-08-09] MEDS: cefTRIAXone 1,000 MG in 0.9 % Sodium Chloride 10 ML IVPB SCH (16:57)
[2021-08-09] MEDS: *HR* Enoxaparin 80 MG/0.8 ML SYRINGE SQ SCH (16:58)
[2021-08-09] MEDS: Doxycycline 100 MG in 0.9 % Sodium Chloride Mini Bag 100 ML IVPB SCH (16:58)
[2021-08-09] MEDS: Melatonin 3 MG TABLET PO PRN (20:26)
[2021-08-09] MEDS: QUEtiapine Fumarate 100 MG TABLET PO SCH (20:27)
[2021-08-09] MEDS: Insulin DETEMIR 100 UNIT/ML X5UNITS SUBQ SCH (20:46)
[2021-08-10 02:04] LABS: Basophils % 0.2 %; Hematocrit 22.3 % (37.5-50.1); Hemoglobin 6.8 g/dL (12.9-16.9); Immature Granulocytes % 0.9 % (0-4); Lymphocytes # 0.5 K/mcL (0.6-4.6); Lymphocytes % 8.2 %; Mean Corpuscular HGB Conc 30.5 g/dL (31.6-35.5); Mean Corpuscular Hemoglobin 29.4 pg (28.0-33.3); Mean Corpuscular Volume 96.5 fL (83.0-100.0); Mean Platelet Volume 11.2 fL (9.4-12.4); Monocytes # 0.3 K/mcL (0.0-1.3); Monocytes % 4.7 %; Neutrophils # 5.7 K/mcL (1.6-8.9); Platelet Count 114 K/mcL (140-400); Red Blood Count 2.31 M/mcL (4.19-5.50); Red Cell Distribution Width 14.6 % (11.5-14.5); White Blood Count 6.6 K/mcL (4.3-11.1)
[2021-08-10 02:33] LABS: Alanine Aminotransferase 17 Units/L (7-52); Albumin 2.4 g/dL (3.5-5.7); Albumin/Globulin Ratio 0.8 (1.1-2.2); Alkaline Phosphatase 57 Units/L (34-104); Aspartate Amino Transferase 38 Units/L (13-39); BUN/Creatinine Ratio 33 (6-26); Bilirubin,Total 0.3 mg/dL (0.3-1.0); Blood Urea Nitrogen 34 mg/dL (8-23); C-Reactive Protein 92 mg/L (Less than 10); Calcium 8.3 mg/dL (8.6-10.3); Carbon Dioxide 17 mEq/L (23-29); Chloride 109 mEq/L (98-107); Globulin 2.9 g/dL (2.4-3.5); Glucose 270 mg/dL (70-105); Magnesium 1.9 mg/dL (1.6-2.6); Osmolality,Calculated 291 (280-300); Phosphorous 2.9 mg/dL (2.7-4.5); Potassium 4.8 mEq/L (3.5-5.1); Sodium 132 mEq/L (136-145); Total Protein 5.3 g/dL (6.4-8.9); eGFR For African Americans > 60 (> 60); eGFR For Non-African Americans > 60 (> 60)
[2021-08-10] MEDS: Ipratropium 1 PUFF INHALER IH SCH ×6 (03:40→23:33)
[2021-08-10] MEDS: Doxycycline 100 MG in 0.9 % Sodium Chloride Mini Bag 100 ML IVPB SCH ×2 (06:53→17:39)
[2021-08-10] MEDS: *HR* Enoxaparin 80 MG/0.8 ML SYRINGE SQ SCH (06:54)
[2021-08-10] MEDS: Budesonide/Formoterol 160/4.5 1 PUFF INH IH SCH ×2 (07:17→19:53)
[2021-08-10] MEDS ORDERED: 0.9 % Sodium Chloride 250 ML IVC SCH (07:45)
[2021-08-10] MEDS: Insulin LISPRO 300 UNITS/3 ML VIAL SUBQ SCH ×7 (08:49→20:27)
[2021-08-10] MEDS: cefTRIAXone 1,000 MG in 0.9 % Sodium Chloride 10 ML IVPB SCH (08:49)
[2021-08-10] MEDS: Isosorbide MONOnitrate (24 HR) 30 MG TAB.ER.24H PO SCH (08:51)
[2021-08-10] MEDS: Aspirin Enteric Coated 81 MG Tablet PO SCH (08:51)
[2021-08-10] MEDS: *HR* Methadone 5 MG TABLET PO SCH ×2 (08:52→20:45)
[2021-08-10] MEDS: carvediloL 6.25 MG TABLET PO SCH ×2 (08:52→20:44)
[2021-08-10] MEDS: Gabapentin 300 MG CAPSULE PO SCH ×3 (08:53→20:45)
[2021-08-10] MEDS: Sucralfate 1 GM TABLET PO SCH ×2 (08:53→20:44)
[2021-08-10] MEDS: Insulin DETEMIR 100 UNIT/ML X5UNITS SUBQ SCH ×2 (08:53→20:46)
[2021-08-10] MEDS: QUEtiapine Fumarate 100 MG TABLET PO SCH (20:43)
[2021-08-11 01:45] LABS: Basophils % 0.2 %; Eosinophils % 0.2 %; Hematocrit 23.5 % (37.5-50.1); Hemoglobin 7.5 g/dL (12.9-16.9); Immature Granulocytes % 1.4 % (0-4); Lymphocytes # 0.9 K/mcL (0.6-4.6); Lymphocytes % 14.8 %; Mean Corpuscular HGB Conc 31.9 g/dL (31.6-35.5); Mean Corpuscular Hemoglobin 29.9 pg (28.0-33.3); Mean Corpuscular Volume 93.6 fL (83.0-100.0); Mean Platelet Volume 10.6 fL (9.4-12.4); Monocytes # 0.4 K/mcL (0.0-1.3); Monocytes % 6.2 %; Neutrophils # 4.5 K/mcL (1.6-8.9); Platelet Count 150 K/mcL (140-400); Red Blood Count 2.51 M/mcL (4.19-5.50); Red Cell Distribution Width 14.9 % (11.5-14.5); Segmented Neutrophils % 77.2 %; White Blood Count 5.8 K/mcL (4.3-11.1)
[2021-08-11 02:01] LABS: Alanine Aminotransferase 18 Units/L (7-52); Albumin 2.4 g/dL (3.5-5.7); Albumin/Globulin Ratio 0.8 (1.1-2.2); Alkaline Phosphatase 56 Units/L (34-104); Aspartate Amino Transferase 33 Units/L (13-39); BUN/Creatinine Ratio 30 (6-26); Bilirubin,Total 0.3 mg/dL (0.3-1.0); Blood Urea Nitrogen 31 mg/dL (8-23); C-Reactive Protein 46 mg/L (Less than 10); Calcium 8.2 mg/dL (8.6-10.3); Carbon Dioxide 19 mEq/L (23-29); Chloride 110 mEq/L (98-107); Globulin 3.1 g/dL (2.4-3.5); Glucose 199 mg/dL (70-105); Osmolality,Calculated 294 (280-300); Potassium 4.5 mEq/L (3.5-5.1); Sodium 136 mEq/L (136-145); Total Protein 5.5 g/dL (6.4-8.9); eGFR For African Americans > 60 (> 60); eGFR For Non-African Americans > 60 (> 60)
[2021-08-11] MEDS: Ipratropium 1 PUFF INHALER IH SCH ×4 (03:33→14:07)
[2021-08-11] MEDS: Doxycycline 100 MG in 0.9 % Sodium Chloride Mini Bag 100 ML IVPB SCH (05:20)
[2021-08-11] MEDS ORDERED: *HR* Enoxaparin 40 MG/0.4 ML SYRINGE SQ SCH (06:00)
[2021-08-11] MEDS: Budesonide/Formoterol 160/4.5 1 PUFF INH IH SCH (07:33)
[2021-08-11] MEDS: Insulin LISPRO 300 UNITS/3 ML VIAL SUBQ SCH ×4 (08:10→11:14)
[2021-08-11] MEDS: Insulin DETEMIR 100 UNIT/ML X5UNITS SUBQ SCH (08:32)
[2021-08-11] MEDS: Sucralfate 1 GM TABLET PO SCH (08:33)
[2021-08-11] MEDS: carvediloL 6.25 MG TABLET PO SCH (08:33)
[2021-08-11] MEDS: Gabapentin 300 MG CAPSULE PO SCH (08:33)
[2021-08-11] MEDS: Aspirin Enteric Coated 81 MG Tablet PO SCH (08:33)
[2021-08-11] MEDS: Isosorbide MONOnitrate (24 HR) 30 MG TAB.ER.24H PO SCH (08:33)
[2021-08-11] MEDS: *HR* Methadone 5 MG TABLET PO SCH (08:34)
[2021-08-11] MEDS ORDERED: Doxycycline 100 MG CAPSULE PO SCH (09:00)
[2021-08-11 10:43] VITALS: BP 150/87; PULSE 73; TEMP 97.7
[2021-08-11 11:19] VITALS: O2SAT 95
== END 2021-08-11 12:50 | DRG 871 ==
LOC: 2NENU → SUATTDRO 04:07
PROVIDERS: ADMIT Internal Medicine; ATTEND Hospitalist